=== PATIENT | male | born 1955 | race Caucasian/White ===

== ENCOUNTER 2021-09-09 10:27 | Emergency (ER) | payer OTHER ==
[~2021-09-09] VITALS: Ht 180.3 cm; Wt 118.2 kg
[~2021-09-09 10:27] MED LIST: [UNRECOGNIZED DRUG - REMARK]
[2021-09-09 10:51] VITALS: BP 168/106
[2021-09-09 11:06] LABS: GLUCOSE,POINT OF CARE 310 MG/DL (70-110)
[2021-09-09] MEDS ORDERED: VALA500T34 PO (12:11)
[2021-09-09] MEDS ORDERED: GABA-1216 PO (12:13)
[2021-09-09] MEDS ORDERED: GABAPENTIN 100 MG CAPSULE PO ONE (12:15)
== END 2021-09-09 12:21 | disposition home or self-care (01) ==
LOC: EMS 10:27
DX: B02.9 Zoster without complications (principal); R23.8 Other skin changes; E11.9 Type 2 diabetes mellitus without complications; I10 Essential (primary) hypertension; Z87.891 Personal history of nicotine dependence; Z88.6 Allergy status to analgesic agent; Z88.1 Allergy status to other antibiotic agents; Z88.8 Allergy status to other drugs, medicaments and biological substances
CPT/HCPCS: 82962; 99283